=== PATIENT | male | born 2000 | race Caucasian/White ===

== ENCOUNTER 2022-04-23 13:26 | Outpatient (CLI) | payer BC, SELFPAY ==
--- NOTE | 2022-04-23 13:45 | MR_ITS ---
[address] [address] Phone:?[phone] Fax:?[phone] Referring Physician Information: Jay Lara [address] [facility] [address] Phone:?[phone] Fax:?[phone] Patient:?Soy Patterson D.O.B:?2000 Sex:?Male Phone:?[phone] [facility] MRN:?[id number] Exam Date:?04/23/2022 ? EXAM: MRI of the LEFT KNEE, without contrast CLINICAL: Left knee pain. Evaluate ACL, PCL and MCL. COMPARISONS: None available. TECHNICAL: MR sequences of the left knee: sagittals: PD, PDFS coronals: PD, T2FS axials: PD, PDFS SEDATION: None. CONTRAST: None. FINDINGS: Ligaments: ACL: Intact ACL anteromedial and posterolateral bundles, without sprain or tear. PCL: There is high-grade tearing/disruption of the proximal PCL at the femoral attachment. MCL: There is high-grade tearing with complete disruption of the distal superficial MCL from the tibial attachment with approximately 3 cm of proximal retraction of torn ligament fibers. There is also high-grade tearing with complete disruption of the deep meniscofemoral component of the MCL with approximately 0.6 cm of distal retraction of torn ligament fibers. LCL: Intact LCL, without injury. Posterolateral corner: Popliteus, biceps femoris, iliotibial band, and the popliteofibular ligament appear intact. Posteromedial corner: Semimembranosus, pes anserine tendons and posterior oblique ligament appear intact. Extensor mechanism: Patellar tendon: Intact, without tendinopathy. Quadriceps tendon: Intact, without tendinopathy. Retinacula: Lateral patellar retinaculum is intact. There is sprain injury with high-grade tearing involving the femoral fibers of the medial patellofemoral ligament, with adjacent soft tissue edema. Fat pads: Unremarkable infrapatellar Hoffa's, quadriceps and prefemoral fat pads. Patellofemoral joint: Patella: No significant chondromalacia. Trochlea: No significant chondromalacia. Medial compartment: Medial meniscus: Meniscocapsular injury involves the far peripheral posterior horn and body segment. Meniscus otherwise appears intact. No meniscal displacement. Medial cartilage: No significant chondromalacia. Lateral compartment: Lateral meniscus: No evidence of discrete meniscal tear or meniscal displacement. Lateral cartilage: No significant chondromalacia. Knee joint: Effusion: Small left knee effusion. Intra-articular bodies:?No convincing bodies identified. Popliteal cyst: None. Bones: No suspicious bone marrow signal alteration or fracture line. IMPRESSION: 1. High-grade tearing with complete disruption of the distal superficial MCL from the tibial attachment site with approximately 3 cm of proximal retraction of torn ligament fibers. There is full-thickness tearing of the deep meniscofemoral component of the MCL with approximately 0.6 cm of distal retraction of torn ligament fibers. 2. Sprain injury with high-grade tearing involving the femoral fibers of the medial patellofemoral ligament. 3. High-grade tearing/disruption of the proximal femoral fibers of the PCL. 4. Meniscocapsular injury involving the far peripheral body and posterior horn medial meniscus. Menisci otherwise appear intact. 5. No evidence of fracture or chondral defect. ACL is intact. JCZ Electronically signed on 04/24/2022 7:20:00 AM by Karsten Licea D.O.
== END 2022-04-23 13:27 | disposition home or self-care (01) ==
LOC: MRI 13:27
PROVIDERS: PCP Family Medicine; Visit Provider Physician Assistant
DX: M25.562 Pain in left knee (principal); S83.412A Sprain of medial collateral ligament of left knee, initial encounter; S83.8X2A Sprain of other specified parts of left knee, initial encounter; S83.522A Sprain of posterior cruciate ligament of left knee, initial encounter
CPT/HCPCS: 73721

== ENCOUNTER 2022-05-06 07:18 | Day surgery (SDC) | payer OTHER, SELFPAY ==
[2022-05-06] VITALS (22 sets, daily range): BP systolic 120–173; BP diastolic 15–117; PULSE 46–107; RESP 13–22; TEMP 36.1–37.5; O2SAT 96–100; BMI 26.3
[2022-05-06] MEDS: LACTATED RINGERS 1000 ML 1,000 ML 100 ML IV (07:30)
[2022-05-06] MEDS: ETHYL CHLORIDE 1 APPLICATION 1 APPLIC TOPICAL (08:14)
[2022-05-06] MEDS: SODIUM CHLORIDE 0.9 % (FLUSH) 10 ML SYRINGE IVF (08:14)
--- NOTE | 2022-05-06 08:49 | SUR.PREOP ---
TIME?OUT:?8:50, left knee PT/RN/MDA?VERIFICATION?OF?SURGICAL?SITE,?PROCEDURE,?AND?CONSENT OBTAINED?PRIOR?TO?INVASIVE?PROCEDURE.
[2022-05-06] MEDS: fentaNYL 100 MCG/2 ML inj IVP (09:00)
[2022-05-06] MEDS: MIDAZOLAM HCL 1 MG/ML inj IVP (09:00)
--- NOTE | 2022-05-06 09:15 | W.PM.NB ---
Nerve Block Nerve Block Time Seen by Provider: 09:00 Date Seen: 05/06/22 Type of block requested by surgeon for post-operative analgesia: geniculars Side: left Time out performed: Yes Verification of patient name: Yes Verification of date of : Yes Site marking: site marked Name of person performing procedure: Jer Brooks Continuous monitoring Was continuous monitoring of O2 sat, B/P, site monitor, recorded every 15 minutes?: Yes Procedure Checklist: sterile prep, needles and gloves Ultrasound guided. Images saved: No Medications given in 5ml increments after negative aspiration: Marcaine %: 0.25 mL: 12 Needle gauge: 20 and Ropivicaine Decadron (mg): 10 Precedex (mcg): 25 Patient tolerated procedure well: Yes Block Charges Block Charge (with Pro Fee): Genicular Nerve Block Use of Ultrasound Machine for Block: No
--- NOTE | 2022-05-06 09:16 | W.PM.NB ---
Nerve Block Nerve Block Time Seen by Provider: 09:00 Date Seen: 05/06/22 Type of block requested by surgeon for post-operative analgesia: adductor canal Side: left Time out performed: Yes Verification of patient name: Yes Verification of date of : Yes Site marking: site marked Name of person performing procedure: Jer Brooks Continuous monitoring Was continuous monitoring of O2 sat, B/P, athletic monitor, recorded every 15 minutes?: Yes Procedure Checklist: sterile prep, needles and gloves Ultrasound guided. Images saved: Yes Medications given in 5ml increments after negative aspiration: Marcaine %: 0.25 mL: 20 Needle gauge: 20 Decadron (mg): 10 Precedex (mcg): 25 Patient tolerated procedure well: Yes Block Charges Block Charge (with Pro Fee): Femoral Nerve Use of Ultrasound Machine for Block: Yes- US Guidance/pain block
[2022-05-06] MEDS: CEFAZOLIN 2 GM in 0.9 % SODIUM CHLORIDE Mini-bag 100 ML IVPB (09:55)
--- NOTE | 2022-05-06 11:34 | CRLHL7_ITS ---
For Patients: As a result of the Cures Act, medical imaging exams and procedure reports are released immediately into your electronic medical record. You may view this report before your referring provider. If you have questions, please contact your health care provider. Indication: PCL RECONSTRUCTION Technique: AP fluoroscopic images left knee. Fluoroscopic time 2.7 seconds. IMPRESSION: Fluoroscopic guidance for PCL reconstruction. Dictated by Parrish Lowery MD @ 05/06/2022 12:01:05 PM (Electronically Signed)
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
--- NOTE | 2022-05-06 14:17 | W.ANESCHARGE ---
Anesthesia Charges Start Date/Time Anesthesia Start Date: 05/06/22 Anesthesia Start Time: 09:42 Stop Date/Time Anesthesia Stop Date: 05/06/22 Anesthesia Stop Time: 14:15 Summary Emergency: No
[2022-05-06] MEDS: fentaNYL 100 MCG/2 ML inj 50 MCG IVP ×2 (14:35→14:48)
[2022-05-06] MEDS: TRAMADOL HCL 50 MG TABLET 100 MG PO (15:42)
[2022-05-06] MEDS: ACETAMINOPHEN 500 MG TABLET 1000 MG PO (15:56)
== END 2022-05-06 16:25 | disposition home or self-care (01) ==
PROVIDERS: PCP Family Medicine; Visit Provider Orthopaedic Surgery Sports Medicine
PROC: (CPT 27407; principal; 2022-05-06 09:15)
DX: S83.522A Sprain of posterior cruciate ligament of left knee, initial encounter (principal); S83.412A Sprain of medial collateral ligament of left knee, initial encounter
CPT/HCPCS: 29889; 27427; 01400; 64447; 64454; 73560; 76942; A9270; C1713; C1762; J0330; J0690; J1100; J2250; J2405; J2704; J3010; J3490; J7120; L1833